=== PATIENT | male | born 1955 | race Caucasian/White ===

== ENCOUNTER 2021-02-09 19:30 | Inpatient (IN) | payer MEDICARE, OTHER ==
[2021-02-09] VITALS (85 sets, daily range): BP systolic 78–96; BP diastolic 48–61; PULSE 60–64; TEMP 99.1; O2SAT 83–100
[~2021-02-09] VITALS: Ht 182.9 cm; Wt 71.1 kg
--- NOTE | 2021-02-09 21:50 | NUR ---
PATIENT RECEIVED FROM [facility]. FAMILY IN WAITING ROOM. PATIENT WAS FOUND TO BE LIGHTLY SEDATED ON VERSED, STILL AWAKE AND FOLLOWING COMMANDS BEST HE COULD. PATIENT INTUBATED AT THIS TIME AND HOOKED UP ON VENTILATOR. JONES CATHETER IN PLACE. VITALS STABLE EXCEPT FOR LOW BP. RECEIVED FAMILY AND GOT HISTORY FROM THEM. PEG TUBE IN PLACE AND CLAMPED. PATIENT HAS [address] WHICH ARE PATENT. NO SKIN ISSUES OR INCONTINENCE. ORIENTATION TO ROOM AND VISITING HOURS PERFORMED. ADMISSION DATABASE COMPLETED.
[2021-02-09 22:07] LABS: ARTERIAL BLD GAS O2 SATURATION 98.3 % (92-100); ARTERIAL BLD GAS TCO2 CT 30.9; ARTERIAL BLOOD GAS BASE EXCESS 5.5 (-2-2); ARTERIAL BLOOD GAS HCO3 29.7 meq/L (22-26); ARTERIAL BLOOD GAS PCO2 41.7 mmHg (35-45); ARTERIAL BLOOD GAS PO2 104.2 mmHg (80-100); ARTERIAL BLOOD GAS pH 7.47 (7.35-7.45)
[2021-02-09] MEDS ORDERED: DESYREL 100MG100 MG PO (22:10)
[2021-02-09] MEDS ORDERED: EFFEXOR 75M75 MG/TAB PO (22:11)
[2021-02-09 23:50] LABS: CALCIUM 8.3 mg/dL (8.4-10.2); CREATININE, serum 0.57 (0.66-1.25); POTASSIUM 4.1 mmol/L (3.4-5.0)
[2021-02-10] VITALS (642 sets, daily range): BP systolic 72–157; BP diastolic 49–111; PULSE 46–148; TEMP 98.1–98.9; O2SAT 67–100
[2021-02-10 05:10] LABS: BASO # 0.1 (0.0-0.2); BASO % 0.6 % (0.0-2.0); EOS # 0.3 (0.0-0.7); GRAN # 5.9 (1.4-6.5); GRAN % 68.6 % (42.2-75.2); HEMOGLOBIN 11.5 g/dl (13.5-18.0); LYMPH # 1.3 (1.2-3.4); MEAN CELL VOLUME 96 fl (80.0-100.0); MEAN CORPUSCULAR HEMOGLOBIN 31 pg (27.0-31.0); MEAN CORPUSCULAR HGB CONC 32 g/dl (33.0-37.0); MEAN PLATELET VOLUME 12.5 fl (7.4-10.4); MONO % 11.3 % (1.7-9.3); PLATELET COUNT 169 K/mm3 (130-400); RED BLOOD COUNT 3.75 M/mm3 (4.20-5.60); REDCELL DISTRIBUTION WIDTH-CV 13.2 % (11.5-14.5)
[2021-02-10 05:23] LABS: ALBUMIN 3.4 gm/dL (3.5-5.0); BILIRUBIN,TOTAL 0.5 mg/dL (0.0-1.0); CREATININE, serum 0.49 (0.66-1.25); POTASSIUM 3.6 mmol/L (3.4-5.0); TOTAL PROTEIN 6.7 gm/dL (6.4-8.2)
--- NOTE | 2021-02-10 05:49 | NUR ---
NO SEDATION VACATION TODAY BECAUSE OF EVENTFUL EVENING WITH ATTEMPTING TO STABILIZE VITAL SIGNS, PATIENT COMPLAINING OF PAIN AND STILL ABLE TO FOLLOW COMMANDS.
[2021-02-10 06:01] LABS: ARTERIAL BLD GAS O2 SATURATION 98.8 % (92-100); ARTERIAL BLD GAS TCO2 CT 30.8; ARTERIAL BLOOD GAS BASE EXCESS 4.2 (-2-2); ARTERIAL BLOOD GAS HCO3 29.4 meq/L (22-26); ARTERIAL BLOOD GAS PCO2 46.3 mmHg (35-45); ARTERIAL BLOOD GAS pH 7.42 (7.35-7.45)
[2021-02-10 06:02] LABS: ARTERIAL BLOOD GAS PO2 136.3 mmHg (80-100)
--- NOTE | 2021-02-10 08:15 | NUR ---
Pt's "television engineering teacher/life-partner" at bedside. Update provided, all questions answered - no conerns at this time
--- NOTE | 2021-02-10 10:23 | NUR ---
And Taxi Instructor Bus Trolley attended clinical rounds with the team. The patient's person to notify (Carey) in the EMR present. The patient is currently intubated and sedated.
--- NOTE | 2021-02-10 19:15 | NUR ---
Received report from PEACE Chase. Patient is alert, following verbal commands, and is watching television quietly. He is tolerating the ventilator well. All vitals within normal limits; all drips confirmed at bedside. Bed in lowest position, call light within reach. No further needs noted.
[2021-02-11] VITALS (619 sets, daily range): BP systolic 86–134; BP diastolic 49–79; PULSE 49–62; TEMP 98–101; O2SAT 61–100
[2021-02-11 04:28] LABS: BASO # 0.1 (0.0-0.2); BASO % 1.2 % (0.0-2.0); EOS # 0.4 (0.0-0.7); EOS % 4.8 % (0-4.0); GRAN # 4.7 (1.4-6.5); GRAN % 60.8 % (42.2-75.2); HEMOGLOBIN 10.4 g/dl (13.5-18.0); LYMPH # 1.7 (1.2-3.4); LYMPH % 22.2 % (20.0-51.0); MEAN CELL VOLUME 98 fl (80.0-100.0); MEAN CORPUSCULAR HEMOGLOBIN 31 pg (27.0-31.0); MEAN CORPUSCULAR HGB CONC 32 g/dl (33.0-37.0); MEAN PLATELET VOLUME 12.3 fl (7.4-10.4); MONO # 0.8 (0.1-0.6); MONO % 10.5 % (1.7-9.3); PLATELET COUNT 178 K/mm3 (130-400); RED BLOOD COUNT 3.36 M/mm3 (4.20-5.60); REDCELL DISTRIBUTION WIDTH-CV 13.2 % (11.5-14.5)
[2021-02-11 04:37] LABS: HEMATOCRIT 32.8 % (42.0-52.0)
[2021-02-11 04:40] LABS: ALBUMIN 2.9 gm/dL (3.5-5.0); BILIRUBIN,TOTAL 0.6 mg/dL (0.0-1.0); CALCIUM 7.9 mg/dL (8.4-10.2); CREATININE, serum 0.49 (0.66-1.25); MAGNESIUM 2.2 mg/dL (1.6-2.3); POTASSIUM 3.6 mmol/L (3.4-5.0); TOTAL PROTEIN 6.1 gm/dL (6.4-8.2)
[2021-02-11 06:10] LABS: ARTERIAL BLD GAS TCO2 CT 24.7; ARTERIAL BLOOD GAS BASE EXCESS -0.5 (-2-2); ARTERIAL BLOOD GAS HCO3 23.6 meq/L (22-26); ARTERIAL BLOOD GAS PCO2 37.3 mmHg (35-45); ARTERIAL BLOOD GAS PO2 117.6 mmHg (80-100); ARTERIAL BLOOD GAS pH 7.42 (7.35-7.45)
--- NOTE | 2021-02-11 08:51 | NUR ---
(late entry 02/10) Optical Designer met with the patient and the patient's caregiver/life partner Carey to complete intake. Carey is the patient's DPOA-HC, copy of DPOA-HC provided and placed in chart. The patient lives in [place] and has an "extreme support system." The patient has a hal life, lift bed, roll in shower, wheelchairs for transport, and lift van. The home is one level and is accessible for the patient's needs. The patient's PCP is Dr. Huynh and patient receives medications from [facility] in . The patient also receives medications at [place] if needed. [facility] with [facility] aide in the morning 5 days a week. Carey states they may begin providing an aid in the evenings as well. The discharge plan is for the patient to return home with Carey and continued VA and family support. *Discharge disposition: Home with Carey
--- NOTE | 2021-02-11 09:00 | NUR ---
Patient tolerating ventilator well. Able to squeeze hands upon command. Although has significant contractures of BUE and very limited movement noted. Significant other at bedside. All questions and concerns addressed at this time.
--- NOTE | 2021-02-11 10:01 | NUR ---
Online Trader attended clinical rounds with the team. Carey present. Tube feedings to begin this day. The patient has been newly diagnosed with CHF. Dietitian following. *Discharge disposition: Home with Carey, family support, and continued [facility] bath aide 5 days a week.
--- NOTE | 2021-02-11 12:26 | NUR ---
Accu check blood glucose 65. Adminisered 4 0z of orange juice via peg tube. Tube feeds initiated at this time. Will continue to monitor.
[2021-02-11 17:13] LABS: CALCIUM 8.4 mg/dL (8.4-10.2); CREATININE, serum 0.56 (0.66-1.25); POTASSIUM 3.6 mmol/L (3.4-5.0)
--- NOTE | 2021-02-11 17:47 | NUR ---
HR DROPPED TO 49 AFTER INITIATING NE0-SYNEPHRINE AT 100 MCG/MIN. DOSE TITRATED DOWN AND HEART RATE ALMOST IMMIDIATELY BACK UP TO MID 50'S. BP 127/75.
--- NOTE | 2021-02-11 18:53 | NUR ---
Sedation vacation not performed; patient only receiving IV fentanyl. Arouses without difficulty and able to squeeze hands upon command.
--- NOTE | 2021-02-11 19:20 | NUR ---
Received report from PEACE Greco.
[2021-02-12] VITALS (731 sets, daily range): BP systolic 82–123; BP diastolic 52–75; PULSE 47–56; TEMP 97.9–99.6; O2SAT 77–100
[2021-02-12 05:12] LABS: BASO # 0.1 (0.0-0.2); BASO % 1.4 % (0.0-2.0); EOS # 0.4 (0.0-0.7); EOS % 7.5 % (0-4.0); GRAN # 2.6 (1.4-6.5); HEMATOCRIT 33.8 % (42.0-52.0); LYMPH # 1.9 (1.2-3.4); LYMPH % 34.1 % (20.0-51.0); MEAN CELL VOLUME 94 fl (80.0-100.0); MEAN CORPUSCULAR HEMOGLOBIN 31 pg (27.0-31.0); MEAN CORPUSCULAR HGB CONC 33 g/dl (33.0-37.0); MEAN PLATELET VOLUME 12.8 fl (7.4-10.4); MONO # 0.6 (0.1-0.6); MONO % 10.3 % (1.7-9.3); PLATELET COUNT 208 K/mm3 (130-400); RED BLOOD COUNT 3.58 M/mm3 (4.20-5.60)
[2021-02-12 05:15] LABS: CALCIUM 8.1 mg/dL (8.4-10.2); CREATININE, serum 0.53 (0.66-1.25); POTASSIUM 3.8 mmol/L (3.4-5.0)
[2021-02-12 05:46] LABS: ARTERIAL BLD GAS O2 SATURATION 97.9 % (92-100); ARTERIAL BLD GAS TCO2 CT 28.3; ARTERIAL BLOOD GAS BASE EXCESS 1.7 (-2-2); ARTERIAL BLOOD GAS HCO3 26.9 meq/L (22-26); ARTERIAL BLOOD GAS PCO2 44.6 mmHg (35-45); ARTERIAL BLOOD GAS PO2 102.7 mmHg (80-100)
--- NOTE | 2021-02-12 08:30 | NUR ---
PT is lying in bed this morning alert and watching tv. PT's is bedside. PT wiggles toes when asked. PT appears comfortable. Neosynephrine is able to be titrated down at this time as the MAP is in the 80s.
--- NOTE | 2021-02-12 19:02 | NUR ---
Report given to PEACE Lee.
--- NOTE | 2021-02-12 19:15 | NUR ---
Received report from PEACE Ayoub. Patient resting quietly in bed watching television. Continues to tolerate ventilator well; he is alert and following verbal commands. All vitals within normal limits. Drips confirmed. No further needs noted.
[2021-02-13] VITALS (772 sets, daily range): BP systolic 74–124; BP diastolic 46–72; PULSE 44–56; TEMP 97.2–99.5; O2SAT 58–100
[2021-02-13 05:26] LABS: BASO # 0.1 (0.0-0.2); BASO % 1.4 % (0.0-2.0); EOS # 0.4 (0.0-0.7); GRAN # 2.6 (1.4-6.5); GRAN % 52.7 % (42.2-75.2); HEMOGLOBIN 11.4 g/dl (13.5-18.0); LYMPH # 1.4 (1.2-3.4); LYMPH % 28.3 % (20.0-51.0); MEAN CELL VOLUME 96 fl (80.0-100.0); MEAN CORPUSCULAR HEMOGLOBIN 31 pg (27.0-31.0); MEAN CORPUSCULAR HGB CONC 32 g/dl (33.0-37.0); MEAN PLATELET VOLUME 12.3 fl (7.4-10.4); MONO # 0.4 (0.1-0.6); PLATELET COUNT 218 K/mm3 (130-400); RED BLOOD COUNT 3.67 M/mm3 (4.20-5.60); REDCELL DISTRIBUTION WIDTH-CV 13.1 % (11.5-14.5)
[2021-02-13 05:32] LABS: HEMATOCRIT 35.3 % (42.0-52.0)
[2021-02-13 05:41] LABS: CALCIUM 8.3 mg/dL (8.4-10.2); CREATININE, serum 0.5 (0.66-1.25); POTASSIUM 3.8 mmol/L (3.4-5.0)
--- NOTE | 2021-02-13 05:53 | NUR ---
PT FAILED WEANING TRIAL THIS MORNING, HE WOULD NOT TAKE ANY BREATHS ON HIS OWN.
--- NOTE | 2021-02-13 09:28 | NUR ---
Pt is awake and resting this am with bedside. PT required a higher dose of neosynephrine to be infused through the night than during day shift. Will work on titrating that down as MAP levels dictate. Vitals are unremarkable. PT appears comfortable.
--- NOTE | 2021-02-13 09:50 | NUR ---
Dr. Guzmán in to see patient. updated on plan of care.
--- NOTE | 2021-02-13 10:00 | NUR ---
PT SWITCHED TO SIMV PER WITH ORDER TO WEAN RATE TOLERATED.
--- NOTE | 2021-02-13 19:12 | NUR ---
Report given to PEACE Madison.
--- NOTE | 2021-02-13 20:00 | NUR ---
Assessment complete. Pt is on the ventilator. Repositioned in bed. He is resting quietly in the bed and appears comfortable. Call light within reach.
[2021-02-14] VITALS (797 sets, daily range): BP systolic 85–111; BP diastolic 49–73; PULSE 50–62; TEMP 98.8–100.3; O2SAT 54–100
[2021-02-14 00:40] LABS: COLLECTION METHOD CATHETER
[2021-02-14 00:44] LABS: BASO % 0.7 % (0.0-2.0); EOS # 0.3 (0.0-0.7); EOS % 5.1 % (0-4.0); GRAN # 3.6 (1.4-6.5); GRAN % 65.5 % (42.2-75.2); HEMOGLOBIN 11.3 g/dl (13.5-18.0); LYMPH # 1.2 (1.2-3.4); MEAN CELL VOLUME 94 fl (80.0-100.0); MEAN CORPUSCULAR HEMOGLOBIN 30 pg (27.0-31.0); MEAN CORPUSCULAR HGB CONC 33 g/dl (33.0-37.0); MEAN PLATELET VOLUME 12.2 fl (7.4-10.4); MONO # 0.3 (0.1-0.6); PLATELET COUNT 253 K/mm3 (130-400); RED BLOOD COUNT 3.72 M/mm3 (4.20-5.60)
[2021-02-14 00:47] LABS: HEMATOCRIT 34.8 % (42.0-52.0)
[2021-02-14 00:54] LABS: MUCOUS Present /lpf; PH 8 (5-8); SQUAMOUS EPITHELIAL None Seen /hpf; URINE APPEARANCE Cloudy; URINE BACTERIA None Seen /hpf; URINE BILIRUBIN Negative (NEGATIVE); URINE BLOOD 1+ (NEGATIVE); URINE COLOR Yellow; URINE GLUCOSE Negative (NEGATIVE); URINE KETONE Negative (NEGATIVE); URINE LEUKOCYTE ESTERASE Negative (NEGATIVE); URINE NITRATE Negative (NEGATIVE); URINE PROTEIN(semi-quant) 2+ (NEGATIVE); URINE RBC 20-50 /hpf; URINE UROBILINOGEN Negative (NEGATIVE)
[2021-02-14 01:06] LABS: CALCIUM 8.5 mg/dL (8.4-10.2); CREATININE, serum 0.52 (0.66-1.25); POTASSIUM 3.7 mmol/L (3.4-5.0)
--- NOTE | 2021-02-14 05:00 | NUR ---
Pt is not on any sedation.
[2021-02-14 06:12] LABS: BASO # 0.1 (0.0-0.2); BASO % 1.1 % (0.0-2.0); EOS # 0.3 (0.0-0.7); EOS % 5.9 % (0-4.0); GRAN # 3.3 (1.4-6.5); GRAN % 62.2 % (42.2-75.2); HEMOGLOBIN 11.6 g/dl (13.5-18.0); LYMPH # 1.1 (1.2-3.4); LYMPH % 21.4 % (20.0-51.0); MEAN CELL VOLUME 95 fl (80.0-100.0); MEAN CORPUSCULAR HEMOGLOBIN 31 pg (27.0-31.0); MEAN CORPUSCULAR HGB CONC 32 g/dl (33.0-37.0); MEAN PLATELET VOLUME 12.1 fl (7.4-10.4); MONO # 0.5 (0.1-0.6); MONO % 8.6 % (1.7-9.3); PLATELET COUNT 254 K/mm3 (130-400); RED BLOOD COUNT 3.78 M/mm3 (4.20-5.60); REDCELL DISTRIBUTION WIDTH-CV 13.2 % (11.5-14.5)
[2021-02-14 06:15] LABS: HEMATOCRIT 35.9 % (42.0-52.0)
[2021-02-14 06:29] LABS: CALCIUM 8.5 mg/dL (8.4-10.2); CREATININE, serum 0.52 (0.66-1.25); POTASSIUM 3.7 mmol/L (3.4-5.0)
--- NOTE | 2021-02-14 07:15 | NUR ---
Bedside shift report given to PEACE Avila.
--- NOTE | 2021-02-14 09:34 | NUR ---
SPON WEANING TRIAL ATTEMPTED WITH PRESSURE SUPPORT OF 15 CM H2O. FABIAN BRIEFLY FOR ABOUT 2-3 MINUTES BEFORE RR BEGAN TO DROP AND APNEA VENTILATION STARTED. PT PUT BACK ON AC AT PREVIOUS SETTINGS. NOTIFIED OF ATTEMPT. WILL TRY AGAIN LATER THIS AFTERNOON.
--- NOTE | 2021-02-14 16:45 | NUR ---
SPONT TRIAL ATTEMPTED WITH GREATER SUCCESS. PT AWAKE AND ALERT. VT AVG AROUND 500+ WITH RR IN LOW 20S TO MID TEENS. PAW 20-24. OCCASIONAL APNEIC EPISODES BUT BECAME FEWER AND LESS PRONOUNCED WITH TIME. RT REMAINED WITH PT FOR APPROX 35 MIN TO MAKE SURE PT COULD MAINTAIN EFFORT. HE APPEARED TO UNDERSTAND WHAT RT WANTED HIM TO DO AND ACKNOWLEDGED WITH RAISED FINGER (PER MEANING "YES") THAT HE WAS COMFORTABLE AND OK WITH BEING ALLOWED TO CONTINUE ON TRIAL. WILL PASS ALONG INFO TO [employer] AND REQUEST THAT PT BE PUT BACK ON AC FOR THE NIGHT WITH SPONT TRIAL TO BEGIN IN EARLY AM TOMORROW.
--- NOTE | 2021-02-14 20:11 | NUR ---
Assessment complete. Pt is on the ventilator. Pt repositioned in bed and appears comfortable. Call light within reach.
[2021-02-15] VITALS (651 sets, daily range): BP systolic 85–118; BP diastolic 51–75; PULSE 59–72; TEMP 98–99.2; O2SAT 64–100
--- NOTE | 2021-02-15 05:00 | NUR ---
Pt is not on any sedation.
[2021-02-15 05:33] LABS: BASO # 0.1 (0.0-0.2); BASO % 1.2 % (0.0-2.0); EOS # 0.3 (0.0-0.7); EOS % 7.1 % (0-4.0); GRAN # 2.3 (1.4-6.5); GRAN % 55.4 % (42.2-75.2); HEMOGLOBIN 11.1 g/dl (13.5-18.0); LYMPH # 1.1 (1.2-3.4); LYMPH % 26.7 % (20.0-51.0); MEAN CELL VOLUME 97 fl (80.0-100.0); MEAN CORPUSCULAR HEMOGLOBIN 31 pg (27.0-31.0); MEAN CORPUSCULAR HGB CONC 32 g/dl (33.0-37.0); MEAN PLATELET VOLUME 12.1 fl (7.4-10.4); MONO # 0.4 (0.1-0.6); MONO % 8.7 % (1.7-9.3); PLATELET COUNT 224 K/mm3 (130-400); RED BLOOD COUNT 3.64 M/mm3 (4.20-5.60); REDCELL DISTRIBUTION WIDTH-CV 13.3 % (11.5-14.5)
[2021-02-15 05:36] LABS: HEMATOCRIT 35.2 % (42.0-52.0)
[2021-02-15 05:44] LABS: ALBUMIN 3.3 gm/dL (3.5-5.0); BILIRUBIN,TOTAL 0.2 mg/dL (0.0-1.0); CALCIUM 8.5 mg/dL (8.4-10.2); CREATININE, serum 0.54 (0.66-1.25); POTASSIUM 3.9 mmol/L (3.4-5.0); TOTAL PROTEIN 6.7 gm/dL (6.4-8.2)
--- NOTE | 2021-02-15 07:00 | NUR ---
REPORT RECEIVED ON THIS PATIENT. HE IS SLEEPING. VS WNL. HE IS ON SPONTANEOUS BREATHING TRIAL AT THIS TIME DOING WELL. WILL CONTINUE TO MONITOR.
--- NOTE | 2021-02-15 07:06 | NUR ---
Bedside shift report given to PEACE Avila.
--- NOTE | 2021-02-15 11:42 | NUR ---
PT EXTUBATED TO 3 LPM NC PER . FABIAN PROCEDURE VERY WELL. PRESENT IN ROOM.
--- NOTE | 2021-02-15 12:23 | NUR ---
PATIENT EXTUBATED AT [address] ERWIN ON UNIT AT THIS TIME. IN ROOM FOR EXTUBATION. PATIENT TOLERATED WELL. HE IS ON 2L O2 AFTER EXTUBATION AND MAINTAINING SPO2 OF 98-100%.
--- NOTE | 2021-02-15 16:00 | NUR ---
Patient continues to do well after being extubated. at the bedside and very supportive. Patient remains on 2L O2 via nasal cannula. BP soft but stable. Patient interacts appropriately with staff and . Will continue to monitor.
--- NOTE | 2021-02-15 20:00 | NUR ---
Assessment complete. Pt is resting in bed and is responsive to voice. Repositioned in bed and appears comfortable at this time. Call light within reach.
--- NOTE | 2021-02-15 20:45 | NUR ---
Received report from PEACE Madison. Patient resting quielty in bed. All vitals within normal limits. Patient receiving 1.5L oxygen via nasal cannula, tolerating well. He is alert and following verbal commands. No further needs noted at this time.
[2021-02-16] VITALS (658 sets, daily range): BP systolic 82–146; BP diastolic 43–87; PULSE 52–59; TEMP 97.5–98.7; O2SAT 67–100
--- NOTE | 2021-02-16 01:19 | NUR ---
Notified Rowena hospitalist, of patient's low BPs, with SBPs in 80s and consistent MAPs less than 65. Received orders to initiate levophed drip if trend continues.
[2021-02-16 05:48] LABS: ALBUMIN 3.2 gm/dL (3.5-5.0); BILIRUBIN,TOTAL 0.2 mg/dL (0.0-1.0); CALCIUM 8.7 mg/dL (8.4-10.2); CREATININE, serum 0.57 (0.66-1.25); POTASSIUM 3.7 mmol/L (3.4-5.0); TOTAL PROTEIN 6.5 gm/dL (6.4-8.2)
[2021-02-16 06:05] LABS: MAGNESIUM 2.6 mg/dL (1.6-2.3); PHOSPHOROUS 3.7 mg/dL (2.5-4.5)
[2021-02-16 06:12] LABS: PRE ALBUMIN 19.7 mg/dL (17.6-36.0)
[2021-02-16 11:53] LABS: MEAN CELL VOLUME 98 fl (80.0-100.0); MEAN CORPUSCULAR HGB CONC 31 g/dl (33.0-37.0); MEAN PLATELET VOLUME 12.8 fl (7.4-10.4); PLATELET COUNT 169 K/mm3 (130-400); RED BLOOD COUNT 5.68 M/mm3 (4.20-5.60); REDCELL DISTRIBUTION WIDTH-CV 13.4 % (11.5-14.5)
[2021-02-16 12:22] LABS: HEMATOCRIT 55.5 % (42.0-52.0); HEMOGLOBIN 17.4 g/dl (13.5-18.0); MEAN CORPUSCULAR HEMOGLOBIN 31 pg (27.0-31.0)
[2021-02-16 12:49] LABS: BAND 11 % (0-10); EOSINOPHIL 2 % (0-4); LYMPHOCYTE 27 % (20.0-51.0); NEUTROPHILS 55 % (42.0-75.2)
[2021-02-16 12:50] LABS: PLATELET ESTIMATE NORMAL (NORMAL)
--- NOTE | 2021-02-16 19:15 | NUR ---
Received report from PEACE Ayoub. Patient's spouse, Carey, at bedside. Linens exchanged and patient is repositioned. All vitals within normal limits. He is alert and following verbal commands. Denies any pain or discomfort. No further needs noted.
[2021-02-17] VITALS (478 sets, daily range): BP systolic 88–144; BP diastolic 52–88; PULSE 55–72; TEMP 97.3–99.1; O2SAT 52–100
[2021-02-17 04:48] LABS: BASO # 0.1 (0.0-0.2); BASO % 1.3 % (0.0-2.0); EOS # 0.2 (0.0-0.7); GRAN # 1.9 (1.4-6.5); GRAN % 49.6 % (42.2-75.2); HEMATOCRIT 37.4 % (42.0-52.0); LYMPH # 1.1 (1.2-3.4); LYMPH % 29.5 % (20.0-51.0); MEAN CELL VOLUME 97 fl (80.0-100.0); MEAN CORPUSCULAR HEMOGLOBIN 30 pg (27.0-31.0); MEAN CORPUSCULAR HGB CONC 31 g/dl (33.0-37.0); MEAN PLATELET VOLUME 12.4 fl (7.4-10.4); MONO # 0.5 (0.1-0.6); MONO % 12.8 % (1.7-9.3); PLATELET COUNT 251 K/mm3 (130-400); RED BLOOD COUNT 3.85 M/mm3 (4.20-5.60); REDCELL DISTRIBUTION WIDTH-CV 13.4 % (11.5-14.5)
[2021-02-17 04:50] LABS: HEMOGLOBIN 11.7 g/dl (13.5-18.0)
[2021-02-17 05:25] LABS: CALCIUM 8.6 mg/dL (8.4-10.2); CREATININE, serum 0.53 (0.66-1.25); POTASSIUM 3.8 mmol/L (3.4-5.0)
--- NOTE | 2021-02-17 13:37 | NUR ---
Group Art Supervisor met with the patient and the patient's life partner/caregiver and Carey CLEMONS to follow up over the weekend and to review the discharge plan. The patient in now extubated and has been since Thursday 02/15. The plan is to discharge home with continued [facility] support when ready. *Discharge disposition: Home with family support and continued VA support with a bath aide 5 days a week.
--- NOTE | 2021-02-17 14:40 | NUR ---
First visit from the psychology clinician. No needs right now.
--- NOTE | 2021-02-17 16:02 | NUR ---
PATIENT WILL TRANSFER TO ROOM 354
--- NOTE | 2021-02-17 16:02 | NUR ---
REPORT GIVEN TO PEACE TINOCO
--- NOTE | 2021-02-17 17:16 | NUR ---
REPORT RECEIVED FROM PEACE PÉREZ CARE OF PATIENT ASSUMED AT THIS TIME. PT TRANSFERED IN BED TO UNIT. ASSESSMENT COMPELTED-SEE NOTE FOR ADDITIONAL. PT IS ALERT, ABLE TO ANSWER YES OR NO QUESTIONS. RESTING IN BED WITH AT BEDSIDE. PT POSITIONED COMFORTABLY IN BED, HOB >30 DEGREES AND TUBEFEEDING RE-INITIATED AT THIS TIME (PAUSED FOR TRANSPORT). VSS. BED IN LOW POSITION, CALL COTTO IN REACH. REMAINS AT BEDSIDE. WILL CONTINUE TO MONITOR.
--- NOTE | 2021-02-17 19:07 | NUR ---
Received report from Rowena. Patient awake in bed. With Jevity 1.5 at 55ml/hr.
--- NOTE | 2021-02-17 19:55 | NUR ---
Repositioned patient, placed wedged pillow on his left side. Oral care provided. Maintained patient in an upright position. He is on room air. Lala catheter draining clear, yellow urine.
--- NOTE | 2021-02-17 22:00 | NUR ---
Repositioned patient on his right side.
--- NOTE | 2021-02-18 02:41 | NUR ---
Repositioned patient. Elisabet of RT suctioned his nose. Provided oral care with swabs and applied oral moiturizer.
[2021-02-18 04:09] VITALS: BP 134/86; PULSE 66; TEMP 98.5
[2021-02-18 08:06] VITALS: BP 97/57; PULSE 64; TEMP 98.4
[2021-02-18 11:44] LABS: BASO # 0.1 (0.0-0.2); BASO % 1.2 % (0.0-2.0); EOS # 0.2 (0.0-0.7); EOS % 4.2 % (0-4.0); GRAN # 2.3 (1.4-6.5); GRAN % 56.2 % (42.2-75.2); HEMOGLOBIN 12.8 g/dl (13.5-18.0); LYMPH # 1.1 (1.2-3.4); LYMPH % 26.8 % (20.0-51.0); MEAN CELL VOLUME 96 fl (80.0-100.0); MEAN CORPUSCULAR HEMOGLOBIN 31 pg (27.0-31.0); MEAN CORPUSCULAR HGB CONC 32 g/dl (33.0-37.0); MEAN PLATELET VOLUME 12.5 fl (7.4-10.4); MONO # 0.4 (0.1-0.6); MONO % 10.6 % (1.7-9.3); PLATELET COUNT 284 K/mm3 (130-400); RED BLOOD COUNT 4.15 M/mm3 (4.20-5.60); REDCELL DISTRIBUTION WIDTH-CV 13.8 % (11.5-14.5)
[2021-02-18 11:59] LABS: ALBUMIN 3.7 gm/dL (3.5-5.0); BILIRUBIN,TOTAL 0.2 mg/dL (0.0-1.0); CALCIUM 8.9 mg/dL (8.4-10.2); CREATININE, serum 0.61 (0.66-1.25); POTASSIUM 4.1 mmol/L (3.4-5.0); TOTAL PROTEIN 7.3 gm/dL (6.4-8.2)
[2021-02-18 12:01] VITALS: BP 98/56; PULSE 66; TEMP 97.8
[2021-02-18 16:11] VITALS: BP 106/51; PULSE 66; TEMP 98.5
--- NOTE | 2021-02-18 20:27 | NUR ---
PT HAS HAD AN UNEVENTFUL DAY. BOLUS FEEDS WENT VERY WELL, PATIENT TOLERATED ALL FEEDS, AND HAS HAD NO ISSUES. AT BEDSIDE WHO TAKES VERY GOOD CARE OF HER . THE PATIENT HAS A GREAT PERSONALITY AND IS ABLE TO COMMUNICATE WITH YES AND NO ANSWERS. HIS RIGHT HAND RAISES TOWARD HIS FACE FOR YES, AND HE PUTS HIS HAND DOWN TOWARD HIS STOMACH FOR NO. THIS HAS BEEN A VERY SUCCESSFUL COMMUNICATION TOOL FOR US. THE PATIENT DOES HAVE A GREAT SENSE OF HUMOR AND DOES LIKE TO PLAY JOKES ON HIS NURSES. HE IS COGNITIVELY WITH IT, BUT CANNOT COMMUNICATE. THERE ARE NO OTHER CONCERNS AT THIS TIME. REPORT WAS GIVEN TO PEACE DASH.
[2021-02-18 21:04] VITALS: BP 143/52; PULSE 67; TEMP 97.9
[2021-02-19 00:43] VITALS: BP 131/59; PULSE 76; TEMP 98.3
[2021-02-19 05:00] VITALS: BP 112/62; PULSE 64; TEMP 97.5
[2021-02-19 06:36] LABS: CREATININE, serum 0.71 (0.66-1.25); POTASSIUM 3.9 mmol/L (3.4-5.0)
[2021-02-19 06:45] LABS: BASO # 0.1 (0.0-0.2); BASO % 1.7 % (0.0-2.0); EOS # 0.2 (0.0-0.7); GRAN % 50.1 % (42.2-75.2); HEMOGLOBIN 12.8 g/dl (13.5-18.0); LYMPH # 1.3 (1.2-3.4); LYMPH % 32.8 % (20.0-51.0); MEAN CELL VOLUME 97 fl (80.0-100.0); MEAN CORPUSCULAR HEMOGLOBIN 31 pg (27.0-31.0); MEAN CORPUSCULAR HGB CONC 32 g/dl (33.0-37.0); MEAN PLATELET VOLUME 12.9 fl (7.4-10.4); MONO # 0.4 (0.1-0.6); MONO % 10.9 % (1.7-9.3); PLATELET COUNT 290 K/mm3 (130-400); RED BLOOD COUNT 4.14 M/mm3 (4.20-5.60); REDCELL DISTRIBUTION WIDTH-CV 13.9 % (11.5-14.5)
--- NOTE | 2021-02-19 07:13 | NUR ---
PATEIENT RESTING IN BED COMFORTABLY. TUBE FEEDSINGS STOPPED PER GOAL TO BOLUS TF TODAY. REPORT GIVEN TO DAY NURSE, MEGAN AND CARE RELINQUISHED AT THIS TIME.
[2021-02-19 07:43] VITALS: BP 95/67; PULSE 69; TEMP 98
--- NOTE | 2021-02-19 08:49 | NUR ---
Pt resting in bed, no appearance of Pt in pain. Pt received bolus feeding and medications throuhg PEG tube without problem, no residual noted prior to feeding. Shift assesment complete, left Pt bed in lowest position, spouse in room with Pt.
[2021-02-19 11:19] VITALS: BP 95/54; PULSE 62; TEMP 98
--- NOTE | 2021-02-19 14:36 | NUR ---
MAURA attended clinical rounds. The patient's life partner, Carey, was at bedside. The patient is ready to d/c today. SW reviewed d/c plan and discussed home health services. Carey reports that they already have a wheelchair for the patient and bathaide set up through [facility]. She states that she also receives great support from her family. Carey reports that she would be interested in getting home health set up for continued PT and would like to go ahead and just use [facility]. MAURA presented and read the IM form outloud to Carey. Carey verbalized understanding and signed the form. SW provided her with a copy. MAURA contacted and faxed a referral to Cyronnelli at [facility]. Cydni reports that they are able to accept the patient for services. The patient is to discharge back home with his life partner today, 02/19, with home services for chcf/PT/OT from [facility] . SW notified and faxed d/c orders to [facility] . No additional needs at this time.
--- NOTE | 2021-02-19 19:34 | NUR ---
Pt discharged to home, discussed discharge information with spouse, answered questions, assisted dressing Pt and transferring to W Pt's WC, escorted to entrance, Pt left with spouse via private transportation.
[2021-02-19 19:38] VITALS: BP 157/69; PULSE 63; TEMP 98.5
== END 2021-02-19 16:55 | disposition home health service (06) | DRG 207 ==
LOC: IMCU 19:30 → ICU 21:16 → MEDICAL 02-17 16:40
PROVIDERS: Internal Medicine Pulmonary Disease; Internal Medicine Sleep Medicine; Physician Assistant; Student in an Organized Health Care Education/Training Program; ADMIT Internal Medicine
PROC: 02HV33Z Insertion of Infusion Device into Superior Vena Cava, Percutaneous Approach (ICD-10-PCS; principal; 2021-02-09)
PROC: 5A1955Z Respiratory Ventilation, Greater than 96 Consecutive Hours (ICD-10-PCS; 2021-02-09)
PROC: 0BH17EZ Insertion of Endotracheal Airway into Trachea, Via Natural or Artificial Opening (ICD-10-PCS; 2021-02-09)
DX: J69.0 Pneumonitis due to inhalation of food and vomit (principal); J96.01 Acute respiratory failure with hypoxia; E46 Unspecified protein-calorie malnutrition; G90.3 Multi-system degeneration of the autonomic nervous system; I50.20 Unspecified systolic (congestive) heart failure; I48.91 Unspecified atrial fibrillation; G20 Parkinson's disease; I95.9 Hypotension, unspecified; F32.9 Major depressive disorder, single episode, unspecified; G47.00 Insomnia, unspecified; R13.10 Dysphagia, unspecified; G47.33 Obstructive sleep apnea (adult) (pediatric); E16.2 Hypoglycemia, unspecified; Z68.20 Body mass index [BMI] 20.0-20.9, adult
CPT/HCPCS: 99223-AI; 99233-AI; 99239; J0282; J1650; J2370; J2543; J3010; J3480; J7030; J7050; J7060; J7120